=== PATIENT | female | born 1990 | race Two or more races ===

== ENCOUNTER 2022-04-16 00:52 | Emergency (ER) | payer OTHER ==
[2022-04-16] MEDS ORDERED: SODIUM CHLORIDE 1,000 ML IV STA ×2 (00:58→02:46)
[2022-04-16] MEDS ORDERED: ALBUTEROL SO4 2.5/IPRATROPIUM 0.5 INH SOL 3 ML VIAL.NEB. NEB ONE ×3 (00:58→01:15)
[2022-04-16] MEDS ORDERED: ACETAMINOPHEN 1000 MG/100 ML BAG IVPB ONE (00:58)
[2022-04-16 01:03] VITALS: BMI 26.5
[2022-04-16] MEDS ORDERED: ACETAMINOPHEN INJECTION 100 ML IVPB ONE (01:07)
[2022-04-16 01:59] LABS: BASO % 0.3 % (0-2.0); EOS % 0.4 % (0-4.5); HEMATOCRIT 33.8 % (32.4-45.2); HEMOGLOBIN 11.1 GM/dL (10.7-15.3); LYMPH % 5.7 % (8-40); MCH 27.7 pg (25.7-33.7); MCHC 32.9 g/dl (32.0-36.0); MEAN CELL VOLUME 84.1 fl (80-96); MEAN PLT VOLUME 8.3 fl (7.5-11.1); MONO % 5.4 % (3.8-10.2); NEUT % 88.2 % (42.8-82.8); PLATELET COUNT 256 10^3/uL (134-434); RBC 4.02 M/mm3 (3.60-5.2); RDW 14.3 % (11.6-15.6)
[2022-04-16 02:09] LABS: EPI CELLS 16 /uL (0-25.1); HCG,QUALITATIVE URINE Negative; HYALINE CASTS 9 /uL (0-3.1); PH,URINE 5.5 (5.0-8.0); URINE APPEARANCE CLOUDY; URINE BACTERIA >9,000 /uL (0-1359); URINE BILIRUBIN NEGATIVE (NEGATIVE); URINE COLOR YELLOW; URINE GLUCOSE (UA) NEGATIVE (NEGATIVE); URINE KETONE NEGATIVE (NEGATIVE); URINE LEUK ESTERASE 3+ (NEGATIVE); URINE NITRITE POSITIVE (NEGATIVE); URINE PROTEIN TRACE (NEGATIVE); URINE RBC 22 /uL (0-23.9); URINE UROBILINOGEN 0.2 mg/dL (0.2-1.0); URINE WBC 832 /uL (0-25.8)
[2022-04-16] MEDS ORDERED: CEFTRIAXONE 1 GM in DEXTROSE 5%-WATER - 100 ML IVPB ONE (02:10)
[2022-04-16 02:21] LABS: ALBUMIN 4.1 g/dl (3.4-5.0); CALCIUM 8.7 mg/dL (8.5-10.1)
[2022-04-16 02:24] LABS: CREATININE 0.7 mg/dL (0.55-1.3)
[2022-04-16] MEDS ORDERED: cefTRIAXone SODIUM 1 GM VIAL ONE (02:24)
[2022-04-16 02:27] LABS: BILIRUBIN,TOTAL 1.1 mg/dL (0.2-1); TOT PROT 7.5 g/dl (6.4-8.2)
[2022-04-16] MEDS ORDERED: KETOROLAC TROMETHAMINE 30 MG/1 ML VIAL IVPUSH ONE (02:46)
[2022-04-16] MEDS ORDERED: KETOROLAC TROMETHAMINE 30 MG/1 ML VIAL ONE (02:50)
[2022-04-16 02:55] VITALS: BP 108/63; PULSE 80; RESP 16; TEMP 98.7
== END 2022-04-16 03:18 | disposition home or self-care (01) ==
LOC: FER 00:52
PROC: 3E03329 Introduction of Other Anti-infective into Peripheral Vein, Percutaneous Approach (ICD-10-PCS; principal; 2022-04-16)
PROC: 3E033NZ Introduction of Analgesics, Hypnotics, Sedatives into Peripheral Vein, Percutaneous Approach (ICD-10-PCS; 2022-04-16)
PROC: 3E0F7GC Introduction of Other Therapeutic Substance into Respiratory Tract, Via Natural or Artificial Opening (ICD-10-PCS; 2022-04-16)
PROC: 3E0337Z Introduction of Electrolytic and Water Balance Substance into Peripheral Vein, Percutaneous Approach (ICD-10-PCS; 2022-04-16)
PROC: 3E0333Z Introduction of Anti-inflammatory into Peripheral Vein, Percutaneous Approach (ICD-10-PCS; 2022-04-16)
PROC: 3E0337Z Introduction of Electrolytic and Water Balance Substance into Peripheral Vein, Percutaneous Approach (ICD-10-PCS; 2022-04-16)
DX: N12 Tubulo-interstitial nephritis, not specified as acute or chronic (principal)
CPT/HCPCS: 0241U-QW; 36415; 71045-TC-FY; 80053; 81003; 84703; 85025; 87086; 87186; 93005; 99285-25

== ENCOUNTER 2023-08-26 20:27 | Emergency (ER) | payer OTHER ==
[2023-08-26 20:35] VITALS: BP 113/73; PULSE 92; RESP 16; TEMP 98.7; BMI 27.4
[2023-08-26] MEDS ORDERED: ONDANSETRON 4 MG/2 ML VIAL IVPUSH ONE (21:04)
[2023-08-26] MEDS ORDERED: SODIUM CHLORIDE 1,000 ML IV STA (21:14)
[2023-08-26] MEDS ORDERED: ONDANSETRON 4 MG/2 ML VIAL ONE (21:14)
[2023-08-26] MEDS ORDERED: SODIUM CHLORIDE 1,000 ML IV SCH (21:15)
[2023-08-26 21:24] LABS: HEMATOCRIT 36.2 % (32.4-45.2); MCH 26.9 pg (25.7-33.7); MCHC 33.1 g/dl (32.0-36.0); MEAN CELL VOLUME 81.2 fl (80-96); MEAN PLT VOLUME 8.5 fl (7.5-11.1); PLATELET COUNT 261.8 10^3/uL (134-434); RBC 4.46 10^6/uL (3.60-5.2); WHITE BLOOD COUNT 12.4 10^3/uL (4.0-10.8)
[2023-08-26 21:43] LABS: ALBUMIN 4.6 g/dl (3.4-5.0); CALCIUM 9.2 mg/dl (8.5-10.1); CREATININE 0.6 mg/dl (0.6-1.3); POTASSIUM 3.8 mmol/L (3.5-5.1); TOT PROT 7.4 g/dl (6.4-8.2)
[2023-08-26] MEDS ORDERED: NITROFURANTOIN MACROCRYSTAL 50 MG CAPSULE (FP) PO ONE (22:00)
[2023-08-26] MEDS ORDERED: NITROFURANTOIN MACROCRYSTAL 50 MG CAPSULE (FP) ONE (22:05)
== END 2023-08-26 22:09 | disposition home or self-care (01) ==
LOC: FER 20:27
PROC: 3E033GC Introduction of Other Therapeutic Substance into Peripheral Vein, Percutaneous Approach (ICD-10-PCS; principal; 2023-08-26)
PROC: 3E0337Z Introduction of Electrolytic and Water Balance Substance into Peripheral Vein, Percutaneous Approach (ICD-10-PCS; 2023-08-26)
DX: R53.1 Weakness (principal); R11.2 Nausea with vomiting, unspecified; M54.9 Dorsalgia, unspecified; N30.90 Cystitis, unspecified without hematuria; Z20.822 Contact with and (suspected) exposure to COVID-19
CPT/HCPCS: 0241U-QW; 36415; 80053; 81003; 81015; 84703; 85027; 87086; 87186; 99284-25

== ENCOUNTER 2024-04-19 19:52 | Emergency (ER) | payer OTHER ==
[2024-04-19 20:04] VITALS: BP 125/82; PULSE 69; RESP 16; TEMP 99.5; BMI 27.3
[2024-04-19] MEDS ORDERED: CEPHALEXIN MONOHYDRATE 500 MG CAPSULE (UD) ONE (20:17)
[2024-04-19] MEDS ORDERED: PHENAZOPYRIDINE HCL 100 MG TABLET (FP) ONE (20:17)
[2024-04-19] MEDS: CEPHALEXIN MONOHYDRATE 500 MG CAPSULE (UD) PO ONE (20:19)
[2024-04-19] MEDS: PHENAZOPYRIDINE HCL 100 MG TABLET (FP) PO ONE (20:19)
[2024-04-19 20:24] LABS: EPITHELIAL CELLS 0-5 /hpf
== END 2024-04-19 22:21 | disposition home or self-care (01) ==
LOC: FER 19:52
DX: N76.0 Acute vaginitis (principal); B96.89 Other specified bacterial agents as the cause of diseases classified elsewhere
CPT/HCPCS: 36415; 76830-TC; 81003; 81015; 87086; 87491; 87591; 99284-25